=== PATIENT | male | born 1955 ===

== ENCOUNTER 2018-03-03 08:29 | Day surgery (SDC) | payer OTHER ==
[2018-02-25 10:00] VITALS: BMI 38.7
[2018-03-03] MEDS ORDERED: Lactated Ringer's 1,000 ML IV ONE (10:20)
[2018-03-03] MEDS ORDERED: cefTRIAXone IV 1 gm in Dextros 50 ML IVPB ONE (10:30)
[2018-03-03] MEDS ORDERED: Lidocaine 2% Jelly (Uro-Jet) ONE (10:30)
[2018-03-03] MEDS ORDERED: Propofol 10 mg/ml Inj (20 ML) ONE (10:33)
[2018-03-03] MEDS ORDERED: Midazolam 2 MG/2 ML VIAL ONE (10:33)
[2018-03-03] MEDS ORDERED: Lidocaine Hydrochloride 5 ML INJ ONE (10:34)
[2018-03-03] MEDS ORDERED: HYDROmorphone 0.5 mg/0.5 ml ISec IVP PRN (11:24)
[2018-03-03] MEDS ORDERED: Lactated Ringer's 1,000 ML IV SCH (11:30)
[2018-03-03 14:01] VITALS: RESP 16; O2SAT 97
[2018-03-03 14:07] VITALS: BP 121/74; PULSE 72; TEMP 97.6
--- NOTE | 2018-03-03 22:50 | OP ---
PROCEDURE DATE: 03/03/2018 PREOPERATIVE DIAGNOSIS: Urethral stricture. POSTOPERATIVE DIAGNOSIS: Urethral stricture. PROCEDURE: Cystoscopy with optical internal urethrotomy and placement of urethral catheter. SURGEON: Pro Singleton MD DESCRIPTION OF PROCEDURE: I confirmed with the patient preoperatively he has not taken any NSAIDs over a week. He was brought to the operating room, placed under LMA anesthesia and premedicated with 1 g of Rocephin piggyback. Initial cystoscopy with a 17-[place] scope revealed the previously seen moderate stricture at the mid urethra. It was about 2 mm in size. Under direct vision, I was able to pass, using a 21-[place] scope, a metal Glidewire, and we confirmed displacement in the bladder by a single fluoroscopic image. We now advanced the optical urethrotome, and we were able to follow the pass of the stricture and at 12 o'clock position incised it for good passage. We now exchanged the instrument for a 22-[place] conventional cystoscope, and we were easily able to negotiate the area get into the bladder. There was lateral lobe occlusion as viewed through the veru. Urine was slightly blood tinged from the procedure itself, but there were no lesions or tumors within the bladder. Both orifices were normal. Urine was sent for culture and sensitivity. We now withdrew all instruments, and easily and atraumatically we were able to introduce a 22-[place] Mae catheter for postop drainage and hemostasis. The patient will go home with a leg bag. The patient tolerated the procedure well. Pro Singleton MD
== END 2018-03-03 13:15 | disposition home or self-care (01) ==
LOC: C.SDS 08:29
PROVIDERS: ATTEND Urology
DX: N35.111 Postinfective urethral stricture, not elsewhere classified, male, meatal (principal); N35.9 Urethral stricture, unspecified; I10 Essential (primary) hypertension; Z86.73 Personal history of transient ischemic attack (TIA), and cerebral infarction without residual deficits; F32.9 Major depressive disorder, single episode, unspecified; N40.0 Benign prostatic hyperplasia without lower urinary tract symptoms
CPT/HCPCS: 52275; 87086; C1769; J0696; J7120